=== PATIENT | male | born 1995 | race Caucasian/White ===

== ENCOUNTER 2019-02-05 14:55 | Emergency (ER) | payer MEDICAID ==
[~2019-02-05] VITALS: Ht 167.6 cm; Wt 68.0 kg
[2019-02-05 14:57] VITALS: BP 152/75
--- NOTE | 2019-02-05 14:57 | NUR ---
PT AMB TO BED 9
[2019-02-05] MEDS ORDERED: LIDOCAINE/EPI 1% 1:100000 20 ML VIAL INJ ONE (15:05)
[2019-02-05] MEDS ORDERED: IBUPROFEN 600 MG TAB PO ONE (15:05)
--- NOTE | 2019-02-05 15:08 | NUR ---
xray at bedside
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
[2019-02-05] MEDS ORDERED: LIDOCAINE MPF 1% - 5 mL VIAL 0 ML ONE (15:15)
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
[2019-02-05] MEDS ORDERED: BACITRACIN OINT 500 UNITS/GM PKT TP STA (15:45)
--- NOTE | 2019-02-05 15:45 | NUR ---
[place] [employer] AT BEDSIDE.
[2019-02-05] MEDS ORDERED: NEOMYCIN/POLYMYXIN/BACITRACIN 0.9 GM/1 PKT TP ONE (16:01)
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
--- NOTE | 2019-02-05 16:21 | NUR ---
Patient discharged with v/s stable. Written and verbal after care instructions given and explained. Patient alert, oriented and verbalized understanding of instructions. Ambulatory with steady gait. All questions addressed prior to discharge. ID band removed. Patient advised to follow up with PMD. Rx of KEFLEX 500MG AND IBUPROFEN 600MG given. Patient educated on indication of medication including possible reaction and side effects. Opportunity to ask questions provided and answered.
[2019-02-05 16:22] VITALS: BP 128/79
== END 2019-02-05 16:19 | disposition home or self-care (01) ==
LOC: MED 14:55
DX: S41.112A Laceration without foreign body of left upper arm, initial encounter (principal); X99.9XXA Assault by unspecified sharp object, initial encounter; Y93.01 Activity, walking, marching and hiking; Y92.89 Other specified places as the place of occurrence of the external cause; Y99.8 Other external cause status
CPT/HCPCS: 12001; 73060; 90471; 90715; 99283; J2001; Q0092